=== PATIENT | male | born 1985 | race Caucasian/White ===

== ENCOUNTER 2023-06-19 23:46 | Emergency (ER) | payer BC ==
[2023-06-19 23:58] VITALS: RESP 16; BMI 29.8
[2023-06-20] MEDS ORDERED: SILVER NITRATE 75% APPLIC STCK 1 PKT EACH ONE (00:02)
[2023-06-20 00:27] VITALS: BP 126/82; PULSE 71; TEMP 98.6
[2023-06-20] MEDS ORDERED: ACETAMINOPHEN 500 MG TABLET (FP) PO ONE (00:32)
[2023-06-20] MEDS ORDERED: DIPHTH,PERTUSS(ACELL),TET 0.5 ML DISP.SYRIN IM ONE ×2 (00:32→00:33)
[2023-06-20] MEDS ORDERED: ACETAMINOPHEN 500 MG TABLET (FP) ONE (00:33)
== END 2023-06-20 00:41 | disposition home or self-care (01) ==
LOC: FER 23:46
PROC: 0HQGXZZ Repair Left Hand Skin, External Approach (ICD-10-PCS; principal; 2023-06-19)
PROC: 3E0234Z Introduction of Serum, Toxoid and Vaccine into Muscle, Percutaneous Approach (ICD-10-PCS; 2023-06-20)
DX: S61.211A Laceration without foreign body of left index finger without damage to nail, initial encounter (principal); W26.0XXA Contact with knife, initial encounter
CPT/HCPCS: 90715; 99282-25

== ENCOUNTER 2024-01-31 01:20 | Emergency (ER) | payer BC ==
[2024-01-31 01:27] VITALS: BP 137/91; PULSE 80; RESP 16; TEMP 97.5; BMI 29.9
[2024-01-31] MEDS ORDERED: CYCLOBENZAPRINE HCL 5 MG TABLET ONE (01:31)
[2024-01-31] MEDS: CYCLOBENZAPRINE HCL 10 MG TABLET (FP) PO ONE (01:36)
== END 2024-01-31 01:38 | disposition home or self-care (01) ==
LOC: FER 01:20
DX: M25.511 Pain in right shoulder (principal)
CPT/HCPCS: 99283-25